=== PATIENT | female | born 1975 | race Caucasian/White ===

== ENCOUNTER 2021-05-16 14:00 | Outpatient (REF) | payer OTHER, SELFPAY ==
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
== END 2021-05-16 14:20 ==
LOC: DI 14:00
PROVIDERS: PCP Nurse Practitioner Family; Visit Provider Nurse Practitioner Family
DX: M25.531 Pain in right wrist (principal)
CPT/HCPCS: 73110

== ENCOUNTER 2022-09-28 00:47 | Outpatient (CLI) | payer BC, SELFPAY ==
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
== END 2022-09-28 01:07 ==
LOC: DI 00:48
PROVIDERS: PCP Nurse Practitioner Family; Visit Provider Student in an Organized Health Care Education/Training Program
DX: S83.282A Other tear of lateral meniscus, current injury, left knee, initial encounter (principal); S76.312A Strain of muscle, fascia and tendon of the posterior muscle group at thigh level, left thigh, initial encounter; X58.XXXA Exposure to other specified factors, initial encounter
CPT/HCPCS: 73721

== ENCOUNTER 2023-07-30 06:14 | Day surgery (SDC) | payer BC, SELFPAY ==
--- NOTE | 2023-07-29 15:20 | W.SURGCON ---
Date of service: 07/30/23 Time of Service: 07:25 Assessment and Plan Assessment and plan (1) Colon cancer screening: Status: Acute Assessment and plan: 48-year-old woman due for her for screening colonoscopy. No symptoms. No increased risk factors (isolated do not is not increased risk factors). Overall plan: Colonoscopy History of Present Illness Narrative: 48-year-old woman is due for screening colonoscopy. She has no symptoms of concern. Remote family history of an aunt who had colon cancer. No other relatives with colon cancer. She has never had a colonoscopy before. Surgical history includes total abdominal hysterectomy and tubal ligation PFSH All Active Problems Colon cancer screening (Acute) Internal derangement of right knee (Acute) Medical History IBS (irritable bowel syndrome) Depression Surgical History Hx of tubal ligation BTL 2008, colposcopy with endocervical curettage History of bilateral carpal tunnel release History of bunionectomy right foot 12/2020 Hx of tonsillectomy 2007 S/P ACL reconstruction left History of hysterectomy uvm 09/21/2015 Hx of esophagogastroduodenoscopy with biopsy and hurst dilation 01/24/2012 Social History (Updated 05/29/23 @ 08:58 by TREASURE Lucia) Smoking/Tobacco Use Status: Never Smoking risk assessment performed?: Yes Alcohol Intake: current Alcohol Intake frequency: 0-2 drinks per day Alcohol type: hard liquor Drug use: Never Substance use type: does not use Housing: house Do you feel safe at home: Yes Do you feel safe in your relationship?: Yes Exam Narrative Exam Narrative: General: Nontoxic, comfortable and interactive Neuro: Alert and oriented x 3 Psych: Good mood and affect, good insight and understanding into her condition Heart: Regular Lungs: Nonlabored breathing and no wheezing
[2023-07-30 06:27] VITALS: BP 131/79; PULSE 59; RESP 16; TEMP 36.3; O2SAT 96
[2023-07-30] MEDS: Lactated Ringers 1,000 ML 80 ML IV (06:50)
--- NOTE | 2023-07-30 07:12 | W.ANESPRE ---
General Info Date of Service Date Performed: 07/30/23 Height: 5 ft 2 in Weight: 58.9 kg Body Mass Index (BMI): 23.7 Surgical Procedure: Operation Date: 07/30/23 07:35 Proposed Procedure Side Surgeon p Colonoscopy Dave Lundberg MD Actual Procedure Side Surgeon p Colonoscopy Not Applicable Dave Lundberg MD Pre-Op Diagnosis Post-Op Diagnosis Colon cancer screening Meds Allergies and Home Medications Allergies Allergy/AdvReac Type Severity Reaction Status Date / Time latex AdvReac Mild Skin Rash Verified 07/30/23 06:31 sertraline AdvReac Unknown Headache Verified 07/30/23 06:31 Home Medication Medication Instructions Recorded fluoxetine 40 mg capsule 40 mg PO DAILY 08/17/22 ibuprofen 600 mg tablet 600 mg PO Q8H PRN 08/17/22 valacyclovir 1 gram tablet 1,000 mg PO BID PRN 05/03/23 bisacodyl 5 mg tablet,delayed 5 mg PO ONCE Colonoscopy Bowel 05/29/23 release (Dulcolax (bisacodyl)) Prep #4 tabs polyethylene glycol 3350 17 238 g PO ONCE Colonoscopy Bowel 05/29/23 gram/dose oral powder Prep #238 grams bupropion HCl 100 mg tablet 100 mg PO BID 07/29/23 Current Visit Medications: Current Medications Generic Name Dose Route Start Last Admin Trade Name Hussainq PRN Reason Stop Dose Admin Ringer's Solution 1,000 mls @ 80 mls/hr 07/30/23 06:00 07/30/23 06:50 IV 07/30/23 23:59 80 mls/hr INFUSION TRAVIS Administration IV Miscellaneous Supplies 1 each 07/30/23 06:00 Iv Access IV 07/30/23 23:59 DIRECTED TRAVIS Sodium Chloride 0 ml 07/30/23 06:00 Normal Saline Flush 10 Ml Syr IV 07/30/23 23:59 PRN PRN Sodium Chloride 0 ml 07/30/23 06:00 Normal Saline 10 Ml Vial IJ 07/30/23 23:59 DIRECTED PRN Sterile Water 0 ml 07/30/23 06:00 Water,Injection,Sterile 10 Ml Vial IJ 07/30/23 23:59 DIRECTED PRN PFSH Active Problems Active Problems: Problem Status Onset Code Colon cancer screening Z12.11 Internal derangement of right knee M23.91 Medical History Medical History IBS (irritable bowel syndrome) Depression Surgical History Surgical History Hx of tubal ligation BTL 2008, colposcopy with endocervical curettage History of bilateral carpal tunnel release History of bunionectomy right foot 12/2020 Hx of tonsillectomy 2007 S/P ACL reconstruction left History of hysterectomy uvm 09/21/2015 Hx of esophagogastroduodenoscopy with biopsy and hurst dilation 01/24/2012 Tobacco Smoking/Tobacco Use Status: Never Alcohol Alcohol Intake: current Alcohol intake frequency: 0-2 drinks per day Alcohol type: hard liquor Substance Use Substance use: Never Substance use type: does not use Vital Signs and Lab Results Vital Signs Most Recent Vital Signs in EMR: Most Recent Vital Signs Temp Pulse Resp BP Pulse Ox 36.3 C L 59 L 16 131/79 96 07/30/23 06:27 07/30/23 06:27 07/30/23 06:27 07/30/23 06:27 07/30/23 06:27 Lab Results Blood Type / Crossmatch: No Data to Display Complete Blood Count: No Data to Display Complete Metabolic Panel: No Data to Display Liver Function Panel: No Data to Display Coagulation Panel: No Data to Display Cardiac Panel: No Data to Display Arterial Blood Gas: No Data to Display Venous Blood Gas: No Data to Display Pancreas Panel: No Data to Display Thyroid Panel: No Data to Display Infectious Disease: No Data to Display Blood Cultures: No Data to Display Toxicology Panel: No Data to Display Panel: No Data to Display Anesthesia Assessment and Plan Anesthesia History Personal History: No History of Anesthesia Complications Family History: No Family History of Anesthesia Complications Exercise Tolerance Exercise Tolerance: Metabolic Equivalents>4 Pertinent Negatives Pertinent Negatives: No Symptoms of GERD Cardiac & Pulmonary Exam Cardiac Exam: Normal S1/S2 Heart Sounds Pulmonary Exam: Clear Bilateral Breath Sounds Implantable Cardiac Device Does patient have a Pacemaker or an ICD?: No Airway Exam Known Difficult Airway: No Mallampati Class: 1 Mouth Opening: Normal (> 3cm) Thyromental Distance: Greater than 3 cm Neck Range of Motion: Full ROM Neck Circumference: Normal Teeth Condition: Normal Dentition ASA Classification ASA Score: ASA 2 Emergency Case?: No NPO Status NPO Status: NPO Clears >2 hours, Solids >8 hours Status Status: Not Relevant due to Medical History Anesthesia Plan Resuscitation Status: Full Code Anesthesia Technique: General Anesthesia Airway Planned: Natural Airway Monitors Used: Standard Monitors
[2023-07-30 07:13] VITALS: BMI 23.7
--- NOTE | 2023-07-30 07:57 | COLE_ITS ---
Date of service: 07/30/23 Time of Service: 07:57 Colonoscopy Report Procedure Description: PROCEDURES PERFORMED: 1. Colonoscopy PREOPERATIVE DIAGNOSIS: Screening colonoscopy POSTOPERATIVE DIAGNOSIS: Normal ileum, normal colon, normal rectum SURGEON: Emily Lundberg MD INDICATION FOR PROCEDURE: 48-year-old woman without any symptoms. Has an isolated history of colon cancer in a paternal great aunt. First colonoscopy FINDINGS: Normal ileum. No polyps. No diverticular disease. No obvious hemorrhoid disease. SURVEILLANCE interval/FOLLOW-UP: 10 years SPECIMENS: None EBL: Minimal COMPLICATIONS: None QUALITY of prep: Excellent Procedure in detail: The patient gave written consent and was in agreement with the indications, the potential risks as well as the benefits of the procedure. They were taken to the endoscopy suite and laid in the left lateral decubitus position. A timeout was performed and anesthesia was administered which was tolerated well. I started the procedure. Digital rectal and visual examination was performed and grossly within normal limits. A well-lubricated flexible colonoscope was then introduced and passed without any notable difficulty all the way to the cecum identified by the ileocecal valve and the appendiceal orifice. The terminal ileum was intubated and looked normal. The scope was then slowly withdrawn with the above-noted findings. The patient tolerated the procedure well and was taken to the PACU in hemo dynamically stable condition.
[2023-07-30 08:00] VITALS: BP 113/70; PULSE 55; RESP 18; TEMP 36.7; O2SAT 99
--- NOTE | 2023-07-30 08:03 | W.PM.DSUDISC ---
Date of service: 07/30/23 Time of Service: 08:03 Discharge Plan Disposition Patient Disposition: Home Condition: Good Discharge Details Attending Provider: Dave Lundberg Primary Care Provider: Mariana Trevino Home Meds and New Rx's Prescriptions: No Action fluoxetine 40 mg capsule 40 mg PO DAILY ibuprofen 600 mg tablet 600 mg PO Q8H PRN bisacodyl [Dulcolax (bisacodyl)] 5 mg tablet,delayed release (DR/EC) 5 mg PO ONCE Qty: 4 0RF Rx Instructions: Colonoscopy Bowel Prep- Per Instructions polyethylene glycol 3350 17 gram/dose powder 238 g PO ONCE Qty: 238 0RF Rx Instructions: Colonoscopy Bowel Prep- Per Instructions valacyclovir 1 gram tablet 1,000 mg PO BID PRN bupropion HCl 100 mg tablet 100 mg PO BID Discharge Instructions Additional Instructions: FINDINGS: Your colon and rectum appear completely healthy. No disease processes. No polyps. You can repeat another colonoscopy in 10 years. Stand Alone Forms: Colonoscopy Post Instructions Activity:: Activity as Tolerated Diet:: As Tolerated DS: Diagnosis Discharge Diagnosis (1) Colon cancer screening: Status: Acute Asessment and Plan: No findings. Follow-up/repeat surveillance colonoscopy in 10 years.
[2023-07-30 08:26] VITALS: BP 115/78; PULSE 53; RESP 16; TEMP 36.2; O2SAT 100
--- NOTE | 2023-07-30 08:55 | W.ANESPOSTOP ---
Postoperative Evaluation Date, Time and Location Date Performed: 07/30/23 Time Performed: 08:55 Patient Location: Day Surgery Unit Vital Signs Most Recent Imported Vital Signs: Most Recent Vital Signs Temp Pulse Resp BP Pulse Ox 36.2 C L 53 L 16 115/78 100 07/30/23 08:26 07/30/23 08:26 07/30/23 08:26 07/30/23 08:26 07/30/23 08:26 Pain Score Most Recent Pain Score: Most Recent Pain Score Pain Level 0 07/30/23 08:26 Assessment Mental Status: Awake (Alert & Oriented to Patient Baseline) Airway and Respiratory Function: Patent airway with normal (patient baseline) respiratory exam Cardiovascular Function: Hemodynamically Stable Hydration Status: Adequately Hydrated Nausea & Vomiting: No Nausea or Vomiting Pain: Pt. Denies Any Pain Peripheral Nerve Block: Patient did not receive a nerve block
== END 2023-07-30 08:52 | disposition home or self-care (01) ==
PROVIDERS: PCP Nurse Practitioner; Visit Provider Student in an Organized Health Care Education/Training Program
PROC: 0DJD8ZZ Inspection of Lower Intestinal Tract, Via Natural or Artificial Opening Endoscopic (ICD-10-PCS; CPT 45378; principal; 2023-07-30 07:30)
DX: Z12.11 Encounter for screening for malignant neoplasm of colon (principal)
CPT/HCPCS: 45378; 00123; J2001; J2704